=== PATIENT | male | born 1960 | race African-American/Black ===

== ENCOUNTER 2020-08-28 10:10 | Outpatient (REF) | payer OTHER, SELFPAY ==
[2020-08-28 11:43] LABS: Immature Retic Fraction 16.5 % (2.3-13.4); Retic HGB Equivalent 33.3 pg (30.0-35.0); Reticulocyte Percent 1.9 % (0.5-1.8); Reticulocytes Absolute 0.082 X10*6/uL (0.026-0.095)
[2020-08-28 11:57] LABS: Alanine Aminotransferase 34 U/L (0-40); Albumin Level 4.4 g/dL (3.5-5.0); Alkaline Phosphatase 43 U/L (39-117); Anion Gap 13 (12-20); Aspartate Amino Transferase 24 U/L (5-37); Bilirubin Total 0.4 mg/dL (0.0-1.0); Blood Urea Nitrogen 9 mg/dL (9-16); Calcium 8.6 mg/dL (8.4-10.2); Carbon Dioxide 27 mmol/L (22-29); Chloride 105 mmol/L (96-108); Cholesterol 270 mg/dL; Estimated Glomerular Filt Rate > 60; Glucose Random 87 mg/dL (60-115); HDL Cholesterol 39 mg/dL; Iron 106 mcg/dL (45-160); LDL Cholesterol Calculated 214 mg/dl; Percent Iron Saturation 38 % (15-50); Sodium 141 mmol/L (135-145); Total Iron Binding Capacity 281 mcg/dL (228-428); Total Protein 7.4 g/dL (6.5-8.0); Triglycerides 87 mg/dL; Unsaturated Iron Binding 175 ug/dL
[2020-08-28 12:19] LABS: Ferritin 202 ng/mL (20-250)
[2020-08-28 12:28] LABS: Folate 8.9 ng/mL (> or = 4.0); Vitamin B12 600 pg/mL (200-900)
[2020-09-01 00:52] LABS: Testosterone, Total 301 ng/dL (250-1100)
== END 2020-08-28 10:11 | disposition home or self-care (01) ==
LOC: HO.HMGCLDS 10:10
PROVIDERS: PCP Internal Medicine; Visit Provider Internal Medicine
DX: D64.9 Anemia, unspecified (principal); N52.9 Male erectile dysfunction, unspecified; E78.00 Pure hypercholesterolemia, unspecified
CPT/HCPCS: 36415; 80053; 80061; 82607; 82728; 82746; 83540; 84403; 85045

== ENCOUNTER → 2020-09-10 10:00 | Outpatient (REF) | payer OTHER, SELFPAY | LOC: HO.SL 10:00 | PROVIDERS: PCP Internal Medicine; Visit Provider Internal Medicine | DX: G47.10 Hypersomnia, unspecified (principal) | CPT/HCPCS: 95806 ==

== ENCOUNTER → 2021-03-28 09:56 | Outpatient (BNVA) | payer SELFPAY | PROVIDERS: PCP Internal Medicine; Visit Provider Physician Assistant Medical | DX: Z02.79 Encounter for issue of other medical certificate (principal) ==

== ENCOUNTER → 2021-07-31 09:48 | Outpatient (BNVA) | payer SELFPAY | PROVIDERS: PCP Internal Medicine ==

== ENCOUNTER 2022-02-19 20:32 | Emergency (ER) | payer OTHER, MEDICAID, SELFPAY ==
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
[2022-02-19 20:40] VITALS: BP 152/110; BP 165/124; PULSE 100; PULSE 96; RESP 16; TEMP 36.7; O2SAT 100; O2SAT 96; BMI 29.2
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
[2022-02-19] MEDS: Cyclobenzaprine HCl 10 MG TABLET PO (21:31)
[2022-02-19] MEDS: traMADoL HCL 50 MG TABLET PO (21:31)
== END 2022-02-19 23:33 | disposition home or self-care (01) ==
PROVIDERS: Emergency Provider Internal Medicine
DX: S16.1XXA Strain of muscle, fascia and tendon at neck level, initial encounter (principal); V49.40XA Driver injured in collision with unspecified motor vehicles in traffic accident, initial encounter; Y93.9 Activity, unspecified; Y92.410 Unspecified street and highway as the place of occurrence of the external cause; Y99.9 Unspecified external cause status
CPT/HCPCS: 72125; 99283; 99284

== ENCOUNTER 2022-02-26 12:06 | Outpatient (REF) | payer OTHER, SELFPAY ==
--- NOTE | ~2022-02-26 | XR_ITS ---
EXAMINATION: XR CERVICAL SPINE XR THORACIC SPINE XR LUMBAR SPINE CLINICAL INFORMATION: Pain. COMPARISON: X-ray lumbar spine 02/14/2015. X-ray thoracic spine 2018 TECHNIQUE: Three views of the cervical spine. Three views of the thoracic spine. Three views of the lumbar spine. FINDINGS: CERVICAL SPINE: Three views of the cervical spine demonstrate some straightening of the normal lordosis. This may be due to position or spasm. There is degenerative change in the cervical region, which appears moderate. Loss of disc height at C3-C4, C4-C5, C5-C6 and C6-C7 with some spurring anterior and posterior. There is no listhesis or compression injury. Likely degenerative changes in the articulating facets, left greater than right. THORACIC SPINE: Three views of the thoracic spine are compared to previous dated 2018. There is mild kyphosis in the mid to upper thoracic spine which has increased from previous. Degenerative changes, most noted in the mid to upper thoracic spine, with loss of disc height and some spurring. There is a long scoliosis convex left, apex at D8. There is no listhesis or compression injury. LUMBAR SPINE: Three views of the lumbosacral spine are compared to previous dated 02/14/2015. Degenerative change, ongoing from previous. Increasing loss of disc height at L4-L5. Continued mild anterolisthesis of L5 relative to L4, similar to previous. Other disc heights are fairly well preserved with some mild loss of disc height at L3-L4 and L5-S1 is also seen. There is also once again loss of disc height at L1-L2, similar to previous. Mildly ongoing. No compression injury. Likely early degenerative changes in the posterior elements at L5-S1 greater than L4-L5. XR/XR thoracic spine 2V IMPRESSION: Mildly Ongoing degeneration from previous exams. No acute compression injury. Mild to moderate degeneration in the lumbosacral spine. Moderate degenerative change in the cervical spine. Mild degeneration in the thoracic spine bordering moderate in the mid thoracic region. If further evaluation is warranted consider MRI
== END 2022-02-26 12:07 | disposition home or self-care (01) ==
LOC: HO.XRAY 12:06
PROVIDERS: PCP Family Medicine; Visit Provider Family Medicine
DX: M54.2 Cervicalgia (principal); M54.6 Pain in thoracic spine; M54.50 Low back pain, unspecified
CPT/HCPCS: 72040; 72070; 72100

== ENCOUNTER → 2023-03-16 09:17 | Outpatient (BNVA) | payer SELFPAY | PROVIDERS: PCP Family Medicine; Visit Provider Physician Assistant Medical | DX: Z02.1 Encounter for pre-employment examination (principal) ==

== ENCOUNTER 2023-08-05 10:25 | Outpatient (REF) | payer SELFPAY ==
[2023-08-06 21:53] LABS: Mumps Virus IgG Antibody >300.00 AU/mL; Rubeola IgG (Measles) >300.00 AU/mL
== END 2023-08-05 10:26 | disposition home or self-care (01) ==
LOC: HO.HHCL 10:25
PROVIDERS: Visit Provider Nurse Practitioner Primary Care
DX: Z01.84 Encounter for antibody response examination (principal); Z28.39 Other underimmunization status
CPT/HCPCS: 36415; 86735; 86762; 86765

== ENCOUNTER → 2025-03-28 12:51 | Outpatient (BNVA) | payer SELFPAY | PROVIDERS: PCP Family Medicine; Visit Provider Registered Nurse | DX: Z02.1 Encounter for pre-employment examination (principal) ==